=== PATIENT | female | born 1945 ===

== ENCOUNTER 2016-08-12 13:19 | Emergency (ER) | payer SELFPAY ==
[~2016-08-12] VITALS: Ht 167.6 cm; Wt 68.0 kg
[2016-08-12 13:22] VITALS: BP 135/79; PULSE 90; RESP 16; TEMP 97.9; O2SAT 99
--- NOTE | 2016-08-15 23:44 | EKG ---
Date Performed: 08/12/2016 Time Performed: 13:49:06 PTAGE: 70 years EKG: ELECTRONIC VENTRICULAR PACEMAKER ABNORMAL RHYTHM ECG NO PREVIOUS TRACING DOCTOR: Obey Bunn Interpretating Date/Time 08/15/2016 23:44:23
== END 2016-08-12 17:20 | disposition left against medical advice (07) ==
LOC: NED 13:19
DX: R53.1 Weakness (principal); Z95.0 Presence of cardiac pacemaker
CPT/HCPCS: 93005; 99281